=== PATIENT | female | born 1960 | race African-American/Black ===

== ENCOUNTER 2019-05-16 07:46 | Emergency (ER) | payer OTHER ==
[~2019-05-16] VITALS: Ht 167.6 cm; Wt 80.0 kg
[2019-05-16 08:19] VITALS: BP 150/82
== END 2019-05-16 09:02 | disposition home or self-care (01) ==
LOC: ER 07:46
DX: R04.0 Epistaxis (principal); M54.9 Dorsalgia, unspecified; I10 Essential (primary) hypertension; Z88.5 Allergy status to narcotic agent
CPT/HCPCS: 99283